=== PATIENT | male | born 1995 | race Hispanic/Latino ===

== ENCOUNTER 2018-02-03 16:35 | Inpatient (IN) | payer MEDICAID ==
[2018-02-03 16:54] VITALS: BMI 23.6
[2018-02-03 17:56] LABS: HEMOGLOBIN 14.1 g/dL (12.0-18.0); MEAN CORPUSCULAR HEMOGLOBIN 29.7 pg (27.0-31.0); MEAN CORPUSCULAR HGB CONC 34.1 g/dL (33.0-37.0); MEAN PLATELET VOLUME 8.3 fL (7.2-11.7); RBC 4.76 Mil/uL (4.40-5.90); RED CELL DISTRIBUTION WIDTH 13.1 % (11.5-14.5)
[2018-02-03 18:05] LABS: URINE AMORPHOUS SEDIMENT RARE /ul (<OCC); URINE BILIRUBIN NEGATIVE (NEGATIVE); URINE BLOOD NEGATIVE (NEGATIVE); URINE CLARITY Hazy (Clear); URINE COLOR Yellow (YELLOW); URINE GLUCOSE (UA) NORMAL (Normal); URINE LEUKOCYTE ESTERASE NEG Leu/uL (Negative); URINE PROTEIN NEGATIVE (NEGATIVE)
[2018-02-03 18:12] LABS: BARBITURATES, UR NEGATIVE (NEGATIVE); OPIATES, UR NEGATIVE (NEGATIVE); PHENCYCLIDINE, UR NEGATIVE (NEGATIVE)
--- NOTE | 2018-02-03 18:14 | C.PDOC ---
History Of Present Illness 22 year old male with PMHx of anxiety and depression presents to the ED requesting detox from alcohol and benzo's. Patient currently reports feeling mildly anxious, states he is due for his gabapentin dose (600 mg). He also complains of feeling nauseous and shaky, with generalized bodyaches. Patient denies any suicidal or homicidal ideation. Denies any other drug use. Time Seen by Provider: 02/03/18 18:14 Chief Complaint (Nursing): Substance Abuse History Per: Patient History/Exam Limitations: no limitations Onset/Duration Of Symptoms: Days Current Symptoms Are (Timing): Still Present Suicide/Self Injury Attempted (Context): None Modifying Factor(s): Alcohol, Other (Benzos) Associated Symptoms: denies: Suicidal Thoughts, Suicidal Plan Involuntary Hold By: None Past Medical History Reviewed: Historical Data, Nursing Documentation, Vital Signs Vital Signs: Last Vital Signs Temp 98.5 F 02/03/18 16:54 Pulse 94 H 02/03/18 16:54 Resp 18 02/03/18 16:54 BP 116/80 02/03/18 16:54 Pulse Ox 97 02/03/18 16:54 - Medical History PMH: Anxiety, Depression Family History: States: No Known Family Hx - Social History Hx Alcohol Use: Yes Hx Substance Use: Yes (benzo) - Immunization History Hx Tetanus Toxoid Vaccination: No Hx Influenza Vaccination: No Hx Pneumococcal Vaccination: No Review Of Systems Except As Marked, All Systems Reviewed And Found Negative. Constitutional: Positive for: Other (bodyaches). Negative for: Fever Cardiovascular: Negative for: Chest Pain, Palpitations Respiratory: Negative for: Shortness of Breath Gastrointestinal: Positive for: Nausea. Negative for: Vomiting, Abdominal Pain Musculoskeletal: Positive for: Other (tremors) Neurological: Negative for: Dizziness Physical Exam - Physical Exam Appears: Non-toxic, No Acute Distress, Other (Appears mildly anxious) Skin: Normal Color, Warm, Dry Head: Atraumatic, Normacephalic Eye(s): bilateral: Normal Inspection, PERRL, EOMI Oral Mucosa: Moist Neck: Normal ROM Chest: Symmetrical Cardiovascular: Rhythm Regular, No Murmur Respiratory: Normal Breath Sounds, No Accessory Muscle Use, Other (NARD) Gastrointestinal/Abdominal: Soft, No Tenderness, No Distention Extremity: Bilateral: Atraumatic, Normal Color And Temperature, Other (mild tremor bilaterally) Pulses: Left Dorsalis Pedis: Normal, Right Dorsalis Pedis: Normal Neurological/Psych: Oriented x3, Normal Speech ED Course And Treatment - Laboratory Results Result Diagrams: 02/03/18 17:51 02/03/18 17:51 O2 Sat by Pulse Oximetry: 97 (RA) Pulse Ox Interpretation: Normal Reevaluation Time: 19:11 Reassessment Condition: Unchanged (MED CLEAR FOR DETOX. CRISIS NOTIFIED.) Medical Decision Making Medical Decision Making: Initial Plan: --Blood work --Urinalysis, UDS --Placed on 1:1 observation --Crisis to arrange detox placement Disposition Counseled Patient/Family Regarding: Studies Performed, Diagnosis - Disposition Disposition: HOSPITALIZED Disposition Time: 20:07 Condition: STABLE Forms: [facility] ([place]) - POA Present On Arrival: None - Clinical Impression Clinical Impression: Drug dependence - Scribe Statement The provider has reviewed the documentation as recorded by the Tyrone Ruffin Provider Attestation: All medical record entries made by the [place] were at my direction and personally dictated by me. I have reviewed the chart and agree that the record accurately reflects my personal performance of the history, physical exam, medical decision making, and the department course for this patient. I have also personally directed, reviewed, and agree with the discharge instructions and disposition.
[2018-02-03 18:22] LABS: BENZODIAZEPINES, UR POSITIVE (NEGATIVE)
[2018-02-03 19:06] LABS: ALB/GLOB RATIO 1.5 (1.0-2.1); ALBUMIN 4.5 g/dL (3.5-5.0); ALT/SGPT 38 U/L (21-72); AST/SGOT 138 U/L (17-59); BLOOD UREA NITROGEN 17 mg/dL (9-20); CALCIUM 9.7 mg/dl (8.6-10.4); GFR NON-AFRICAN AMERICAN > 60
--- NOTE | 2018-02-03 20:20 | PCM.BM ---
<OleMichelle - Last Filed: 02/03/18 20:18> Treatment Plan Problems - Problems identified on initial assessmt Potential for alcohol /benzo withdrawal Date Initiated: 02/03/18 Time Initiated: 20:19 Assessment reference: NA Status: Active Treatment assets and liabiliti Patient Assests: ADL independent, negotiates basic needs, cognitively intact Patient Liabilities: substance abuse (alcohol, benzo) - Milieu Protocol Maintain good personal hygiene: daily Encourage regular showers, daily Remind patient to perform daily oral care, daily Assist patient to perform ADL's Conduct patient checks and document Observation sheet: Q15 minutes Maintain personal safety: every shift Educate patient to report safety concerns to staff, every shift Monitor environment for contraband/sharps Medication safety: Monitor for expected outcome, potential side effects: every shift, Assess barriers to learning: every shift, Assess readiness for medication education: every shift <Bartolo Fernandez - Last Filed: 02/07/18 13:56> - Diagnosis (1) Alcohol use disorder, severe, dependence Status: Acute Interventions: 02/06/18 13:56 * Assess 7x/week regarding severity of withdrawal * Educate regarding risks, benefits, side effects and alternatives of medications * Use Motivational Interviewing for abstinence * Use CBT for relapse prevention * Medication management for withdrawal symptoms * Encourage medication assisted treatment *
[2018-02-04] MEDS ORDERED: Aluminum Hydroxide/Magnesium Hydroxide Susp (30 mL) PO PRN (11:53)
[2018-02-04] MEDS: Multiple Vitamins Tab PO SCH (12:29)
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
--- NOTE | 2018-02-05 09:02 | RAD ---
Chest x-ray two views HISTORY: Rehab admission. COMPARISON: None available. Findings: No focal infiltrate or effusion. Heart size within normal limits. Impression: No focal infiltrate or effusion.
[2018-02-05] MEDS: Multiple Vitamins Tab PO SCH (09:04)
--- NOTE | 2018-02-05 15:03 | PCM.PYCHPN ---
Psychiatric Progress Note - Psychiatric Progress Note Patient seen today, length of contact: 15 minutes Patient Chief Complaint: I'm feeling better with some anxiety. Problems Identified/Issues Discussed: Patient seen, chart reviewed, case discussed with the staff. Issues related to illness and treatment were discussed with the patient and staff. Reported compliant with treatment with no adverse effects. Tolerating treatment very well. Reported feeling little better with some improvement in withdrawal symptoms. Awake, alert and oriented 3. Calm and cooperative with good eye contact. Mood reported as anxious. Affect appropriate. Treatment discussed with the patient. Needs more time for stabilization. Aftercare discussed with the patient. Denied any delusions, auditory or visual hallucinations, suicidal ideations or homicidal ideations at the time of evaluation. Medical Problems: None reported Diagnostic Results: Reviewed DSM 5 Symptoms Update: Some improvement with treatment. Medication Change: No Medical Record Reviewed: Yes Mental Status Examination - Cognitive Function Orientation: Person, Place, Situation, Time Memory: Intact Attention: WNL Concentration: WNL Association: WNL Fund of Knowledge: [facility] Decription of patient's judgement and insights: Fair - Mood Mood: Anxious - Affect Affect: Other (Appropriate) - Speech Speech: Appropriate - Formal Thought Process Formal Thought Process: No Impairment Psychotic Thoughts and Behaviors: None - Suicidal Ideation Suicidal Ideation: No - Homicidal Ideation Homicidal Ideation: No Goal/Treatment Plan - Goal/Treatment Plan Need for Continued Stay: Remain at risks for inpatient hospitalization, Discharge may exacerbated symptoms, Severe functional impairment Progress Toward Problem(s) and Goals/Treatment Plan: Patient education. Supportive therapy. CBT for relapse prevention. AK for abstinence. Continue treatment as before. Patient wants to go either to [facility] [place] [facility] for follow-up care after discharge from the hospital. Estimated Date of D/C: 02/08/18 - Smoking Cessation Smoking Cessation Initiated: Yes
--- NOTE | 2018-02-05 15:08 | PCM.PYCHPN ---
Psychiatric Progress Note - Psychiatric Progress Note Patient seen today, length of contact: 15 minutes Patient Chief Complaint: I'm feeling better with still some anxiety. Problems Identified/Issues Discussed: Patient seen, chart reviewed, case discussed with the staff. Issues related to illness and treatment were discussed with the patient and staff. Reported compliant with treatment with no adverse effects. Tolerating treatment very well. Reported feeling little better with some improvement in withdrawal symptoms, still feels some anxiety. Awake, alert and oriented 3. Calm and cooperative with good eye contact. Mood reported as anxious. Affect appropriate. Treatment discussed with the patient. Needs more time for stabilization. Aftercare discussed with the patient. Denied any delusions, auditory or visual hallucinations, suicidal ideations or homicidal ideations at the time of evaluation. Medical Problems: None reported Diagnostic Results: Reviewed DSM 5 Symptoms Update: Some improvement with treatment. Medication Change: No Medical Record Reviewed: Yes Mental Status Examination - Cognitive Function Orientation: Person, Place, Situation, Time Memory: Intact Attention: WNL Concentration: WNL Association: [facility] Fund of Knowledge: [facility] Decription of patient's judgement and insights: Fair - Mood Mood: Anxious - Affect Affect: Other (Appropriate) - Speech Speech: Appropriate - Formal Thought Process Formal Thought Process: No Impairment Psychotic Thoughts and Behaviors: None - Suicidal Ideation Suicidal Ideation: No - Homicidal Ideation Homicidal Ideation: No Goal/Treatment Plan - Goal/Treatment Plan Need for Continued Stay: Remain at risks for inpatient hospitalization, Discharge may exacerbated symptoms, Severe functional impairment Progress Toward Problem(s) and Goals/Treatment Plan: Patient education. Supportive therapy. CBT for relapse prevention. NM for abstinence. Continue treatment as before. Patient wants to go [facility] to [facility] [place] [facility] for follow-up care after discharge from the hospital. Estimated Date of D/C: 02/08/18 - Smoking Cessation Smoking Cessation Initiated: Yes
[2018-02-05] MEDS: Vitamins A & D Oint UD Foilpak TOP PRN (21:04)
[2018-02-06 06:08] VITALS: RESP 18
[2018-02-06] MEDS: Multiple Vitamins Tab PO SCH (09:06)
--- NOTE | 2018-02-06 15:18 | PCM.PYCHPN ---
Psychiatric Progress Note - Psychiatric Progress Note Patient seen today, length of contact: 15 minutes Patient Chief Complaint: "Tired" Problems Identified/Issues Discussed: The pt is seen, chart reviewed, case discussed with staff. The pt is compliant with medications and reports no side-effects. Symptoms are improving but needs more time to stabilize. Pt attends groups and activities. Support given, psycho-education provided. After care discussed. Medication Change: Yes (detox changes daily) Medical Record Reviewed: Yes Mental Status Examination - Cognitive Function Orientation: Person, Place, Situation, Time Memory: Intact Attention: WNL Concentration: WNL Association: WNL Fund of Knowledge: WNL - Mood Mood: Anxious - Affect Affect: Other (Appropriate) - Speech Speech: Appropriate - Formal Thought Process Formal Thought Process: No Impairment - Suicidal Ideation Suicidal Ideation: No - Homicidal Ideation Homicidal Ideation: No Goal/Treatment Plan - Goal/Treatment Plan Need for Continued Stay: Discharge may exacerbated symptoms, Severe functional impairment Progress Toward Problem(s) and Goals/Treatment Plan: Continue medications Support and psychoeducation daily Attend groups and activities daily After care planning by counselors Estimated Date of D/C: 02/08/18
[2018-02-07] MEDS: Multiple Vitamins Tab PO SCH (09:46)
[2018-02-07] MEDS: Vitamins A & D Oint UD Foilpak TOP PRN (12:42)
[2018-02-08 07:09] LABS: ALB/GLOB RATIO 1.7 (1.0-2.1); ALBUMIN 4.5 g/dL (3.5-5.0); ALT/SGPT 29 U/L (21-72); AST/SGOT 27 U/L (17-59); BLOOD UREA NITROGEN 21 mg/dL (9-20); CALCIUM 9.4 mg/dl (8.6-10.4); GFR NON-AFRICAN AMERICAN > 60
--- NOTE | 2018-02-08 08:57 | PCM.PYCHDC ---
Mental Status Examination - Mental Status Examination Orientation: Person Discharge Summary - Discharge Note Laboratory Data: Abnormal Lab Results 02/08/18 06:41 Sodium 138 Potassium 4.6 Chloride 100 Carbon Dioxide 27 Anion Gap 15 BUN 21 H Creatinine 1.1 Est GFR ( Amer) > 60 Est GFR (Non-Af Amer) > 60 Random Glucose 88 Calcium 9.4 Total Bilirubin 0.3 AST 27 ALT 29 Alkaline Phosphatase 43 Total Protein 7.1 Albumin 4.5 Globulin 2.7 Albumin/Globulin Ratio 1.7 Consultations:: List each consultation separately and include: 1. Reason for request. 2. Findings. 3. Follow-up Summary of Hospital Course include:: 1. Description of specific treatment plan utilized for patients during their course of treatmen. 2. Summarize the time- course for resolution of acute symptoms and/or regressed behaviors. 3. Describe issues identified and worked on during hospitalization. 4. Describe medication utilized. 5. Describe medical problems identified and treated. 6. Reassessment of suicide risk Summary of Hospital Course: He will go to [facility] in - Diagnosis (1) Alcohol use disorder, severe, dependence Current Visit: Yes Status: Acute - Final Diagnosis (DSM 5) Condition upon Discharge: STABLE Disposition: HOME/ ROUTINE Follow-up Treatment Plan: Continue medications Support and psychoeducation daily Attend groups and activities daily After care planning by counselors Prescriptions/Medication Reconciliation: Citalopram [celEXA] 40 mg PO DAILY #30 tab Gabapentin [Neurontin] 400 mg PO TID #90 cap Naltrexone [Revia] 50 mg PO DAILY #30 tab QUEtiapine [Seroquel] 100 mg PO HS #30 tab traZODone [Desyrel] 100 mg PO HS PRN #30 tab PRN Reason: insomnia
[2018-02-08] MEDS: Multiple Vitamins Tab PO SCH (09:29)
[2018-02-08 10:32] VITALS: BP 130/80; PULSE 95; TEMP 97.6; O2SAT 95
== END 2018-02-08 10:25 | disposition home or self-care (01) | DRG 745 ==
LOC: C.ER 16:35 → C.7D 20:07
PROC: HZ2ZZZZ Detoxification Services for Substance Abuse Treatment (ICD-10-PCS; principal; 2018-02-03)
PROC: GZ3ZZZZ Medication Management (ICD-10-PCS; 2018-02-03)
PROC: HZ80ZZZ Medication Management for Substance Abuse Treatment, Nicotine Replacement (ICD-10-PCS; 2018-02-03)
PROC: HZ59ZZZ Individual Psychotherapy for Substance Abuse Treatment, Supportive (ICD-10-PCS; 2018-02-03)
PROC: HZ46ZZZ Group Counseling for Substance Abuse Treatment, Psychoeducation (ICD-10-PCS; 2018-02-03)
DX: F10.20 Alcohol dependence, uncomplicated (principal); F11.20 Opioid dependence, uncomplicated; F13.239 Sedative, hypnotic or anxiolytic dependence with withdrawal, unspecified; F41.8 Other specified anxiety disorders; F17.210 Nicotine dependence, cigarettes, uncomplicated; Z91.410 Personal history of adult physical and sexual abuse

== ENCOUNTER 2018-02-28 14:11 | Inpatient (IN) | payer MEDICAID ==
[2018-02-28 14:11] VITALS: BMI 23.6
--- NOTE | 2018-02-28 15:26 | C.PDOC ---
History Of Present Illness 23 year old male with PMHx of depression, anxiety and drug abuse presents to the ED requesting detoxification from Xanax and Kratom. Reports he was at rehabilitation at [facility] but he was tested positive for alcohol and was expelled as a result. Reports he takes Gabapentin for depression. Denies SI/HI. Time Seen by Provider: 02/28/18 14:45 Chief Complaint (Nursing): Psychiatric Evaluation History Per: Patient History/Exam Limitations: no limitations Onset/Duration Of Symptoms: Hrs Current Symptoms Are (Timing): Still Present Suicide/Self Injury Attempted (Context): None Modifying Factor(s): Alcohol, Other (Xanax, Krotum ) Associated Symptoms: Anxiety, Depression. denies: Suicidal Thoughts, Suicidal Plan Past Medical History Reviewed: Historical Data, Nursing Documentation, Vital Signs - Medical History PMH: Anxiety, Depression Denies: Diabetes (Patient denied), Hepatitis (Patient denied), HIV (Patient denied), HTN (Patient denied), Seizures (Patient denied), Sexually Transmitted Disease (Patient denied) Other Surgeries: Hx of surgeries - [facility] DETOXIFICATION SERVICES FOR SUBSTANCE ABUSE TREATMENT (02/03/18) GROUP POSTAL DELIVERY OFFICER FOR SUBSTANCE ABUSE TREATMENT, PSYCHOEDUCATION (02/03/18) INDIV PSYCHOTHERAPY FOR SUBSTANCE ABUSE TREATMENT, SUPPORT (02/03/18) MEDICATION MANAGEMENT (02/03/18) MEDS MGMT FOR SUBSTANCE ABUSE TREATMENT, NICOTINE REPLACE (02/03/18) Family History: States: No Known Family Hx - Social History Hx Alcohol Use: Yes Hx Substance Use: Yes - Immunization History Hx Tetanus Toxoid Vaccination: No Hx Influenza Vaccination: No Hx Pneumococcal Vaccination: No Review Of Systems Except As Marked, All Systems Reviewed And Found Negative. Psych: Positive for: Anxiety, Depression. Negative for: Suicidal ideation Physical Exam - Physical Exam Additional Physical Exam Comments: General- Well appearing, Non-toxic, No acute distress Head- Normocephalic, Atraumatic Eyes- PERRL, EOMI, Conjunctiva clear Mucosa- Moist Chest- Symmetrical Cardiovascular: Rhythm Regular, No murmur, Other (Normal S1, S2) Resp- no wheezing, rales, or rhonchi, Lungs CTA bilaterally Abd- Soft. Nontender. No distension. No guarding, no rebound Ext: Bilateral (atraumatic, normal color and temperature, no cyanosis or edema) DP pulses 2+ Neuro- Oriented x3, normal sensation, normal motor Gait: steady ED Course And Treatment - Laboratory Results Result Diagrams: 02/28/18 15:36 02/28/18 15:36 Medical Decision Making Medical Decision Making: Plan - Bloodwork - UA - Crisis Eval 174 As per supervisor shed workers, patient will be admitted under Dr. Moran's service for major depressive disorder. Disposition Counseled Patient/Family Regarding: Studies Performed, Diagnosis - Disposition Disposition: HOSPITALIZED Disposition Time: 17:42 Condition: STABLE - Clinical Impression Clinical Impression: Major depressive disorder - Scribe Statement The provider has reviewed the documentation as recorded by the Scribe Honey Calle All medical record entries made by the Scribe were at my direction and personally dictated by me. I have reviewed the chart and agree that the record accurately reflects my personal performance of the history, physical exam, medical decision making, and the department course for this patient. I have also personally directed, reviewed, and agree with the discharge instructions and disposition.
[2018-02-28 15:47] LABS: BASO % 0.8 % (0.0-2.0); EOS % 0.6 % (0.0-4.0); HEMOGLOBIN 13.4 g/dL (12.0-18.0); LYMPH % 35.8 % (20.0-40.0); MEAN CELL VOLUME 89.1 fL (80.0-94.0); MEAN CORPUSCULAR HEMOGLOBIN 30.3 pg (27.0-31.0); MEAN PLATELET VOLUME 9.5 fL (7.2-11.7); MONO # 0.8 K/uL (0.0-0.8); MONO % 14.7 % (0.0-10.0); NEUT # 2.7 K/uL (1.8-7.0); NEUT % 48.1 % (50.0-75.0); RBC 4.42 Mil/uL (4.40-5.90); RED CELL DISTRIBUTION WIDTH 12.9 % (11.5-14.5); URINE BILIRUBIN NEGATIVE (NEGATIVE); URINE BLOOD NEGATIVE (NEGATIVE); URINE CLARITY Hazy (Clear); URINE COLOR Yellow (YELLOW); URINE GLUCOSE (UA) NORMAL (Normal); URINE LEUKOCYTE ESTERASE NEG Leu/uL (Negative); URINE PROTEIN NEGATIVE (NEGATIVE); URINE UROBILINOGEN NORMAL mg/dL (0.2-1.0); WHITE BLOOD COUNT 5.6 K/uL (4.8-10.8)
[2018-02-28 15:59] LABS: BARBITURATES, UR NEGATIVE (NEGATIVE); BENZODIAZEPINES, UR NEGATIVE (NEGATIVE); OPIATES, UR NEGATIVE (NEGATIVE); PHENCYCLIDINE, UR NEGATIVE (NEGATIVE)
[2018-02-28 16:08] LABS: ALB/GLOB RATIO 1.8 (1.0-2.1); ALBUMIN 4.4 g/dL (3.5-5.0); ALT/SGPT 24 U/L (21-72); AST/SGOT 22 U/L (17-59); BLOOD UREA NITROGEN 20 mg/dL (9-20); CALCIUM 8.8 mg/dl (8.6-10.4); GFR NON-AFRICAN AMERICAN > 60
--- NOTE | 2018-02-28 18:30 | PCM.BM ---
<Jairo Valdez - Last Filed: 02/28/18 18:26> Treatment Plan Problems - Problems identified on initial assessmt Depression Date Initiated: 02/28/18 Time Initiated: 18: Assessment reference: NA Status: Active Substance Abuse Date Initiated: 02/28/18 Time Initiated: 18:27 Assessment reference: NA Status: Active Treatment assets and liabiliti Patient Assests: self-reliant, ADL independent, negotiates basic needs, cognitively intact Patient Liabilities: financial problems (Unemployed), substance abuse (Alcohol, opiate tea, xanax), legal issue (Currently on probation) - Milieu Protocol Maintain good personal hygiene: daily Encourage regular showers, daily Remind patient to perform daily oral care, every shift Assist patient to perform ADL's Conduct patient checks and document Observation sheet: Q15 minutes (For safety) Maintain personal safety: every shift Educate patient to report safety concerns to staff, every shift Monitor environment for contraband/sharps Medication safety: Monitor for expected outcome, potential side effects: every shift, Assess barriers to learning: every shift, Assess readiness for medication education: every shift <Musa Moran - Last Filed: 03/01/18 11:23> - Diagnosis (1) Bipolar disorder Status: Acute Interventions: 03/01/18 11:23 * Assess/adjust medications daily and /or as needed * See patient on an individual basis 7x/week to assess level of manic behaviors and stability * Discuss risks, benefits, side effects and alternatives of medications * (2) Alcohol use disorder, severe, dependence Status: Acute Interventions: 03/01/18 11:24 * Assess 7x/week regarding severity of withdrawal * Educate regarding risks, benefits, side effects and alternatives of medications * Use Motivational Interviewing for abstinence * Use CBT for relapse prevention * Medication management for withdrawal symptoms * Encourage medication assisted treatment * <Lisa Naranjo - Last Filed: 03/01/18 11:42> Family Contact Family involvement: Famliy/SO not involved - Goals for Treatment Patient goals for treatment: "I want to go back to the [facility]." Discharge/Continuing Care - Education Needs Education Needs: Patient Medication, Patient Coping Skills, Patient Placement options, Patient Community resources - Discharge Discharge Criteria: Tolerates medication w/o severe side effects, No longer exhibiting s/s of withdrawal Discharge to:: Substance Abuse Rehab - Treatment Team Participation Discussed with Family/SO: No Was Patient/Family/SO present at Treatment Team Meeting: Yes
[2018-03-01] MEDS ORDERED: Naltrexone 25 MG TAB PO SCH (10:00)
--- NOTE | 2018-03-01 10:02 | PCM.PSYCH ---
Initial Psychiatric Evaluation - Initial Psychiatric Evaluation Type of Admission: Voluntary Legal Status: Capacity Chief Complaint (in patient's own words): I was feeling suicidal.' History of Present Illness and Precipitating Events: Patient is a 23 year old, male, single unemployed, who came to the hospital to get help in detox, however during his screening, patient mentioned depressed mood and suicidal ideation. As per the father, patient has history of few inpatient psychiatric hospitalizations, he was last discharged from [facility], in August 2017. He has a history of few detoxes in the past, past detox was at [facility], last month. He follows up with Dr. Ibrahim at [facility] He has been partially compliant with his medications since then. Patient reports history of few suicidal attempts in the past, which all included him trying to either stab himself or cut himself. Patient reported his last suicide attempt was 3 years ago in which patient tried stabbing himself. Patient stated that the suicidal thoughts started yesterday, he informed his family, and his father escorted him to the hospital to get help. Patient reports that he is struggling with his alcohol use. He reports that he has been drinking more than a pint of liquor daily. He reports that he was discharged from the detox unit 02/08/2018 and that he was sober for 25 days. Patient reported that he was attending the [facility] but when he relapsed on 02/28/2018 they tested him and he tested positive in which than he was thrown out of the [facility]. He also reports of abusing Kratum and Xanax. He reports irritability, agitation and racing thoughts. He reports depressed mood, feelings of hopelessness and helplessness, poor sleep and poor appetite. He reports suicidal ideation however he denies any homicidal ideation. He denies any auditory or visual hallucinations or any paranoia. He reports withdrawal symptoms including anxiety, sweating and headaches. Past medical history None reported Current Medications: Active Medications Generic Name Dose Route Start Last Admin Trade Name Freq PRN Reason Stop Dose Admin Citalopram Hydrobromide 20 mg 03/01/18 10:00 Celexa PO DAILY STEPHANIE Gabapentin 400 mg 03/01/18 10:00 Neurontin PO TID STEPHANIE Influenza Virus Vaccine 60 mcg 03/02/18 10:00 Fluzone Quad [id number] IM 03/02/18 10:01 .ONCE ONE Naltrexone HCl 50 mg 03/01/18 10:00 Revia PO DAILY STEPHANIE Pneumococcal Polyvalent Vaccine 0.5 ml 03/02/18 10:00 Pneumovax 23 Vaccine IM 03/02/18 10:01 .ONCE ONE Quetiapine Fumarate 100 mg 02/28/18 23:45 Seroquel PO HS STEPHANIE Trazodone HCl 100 mg 02/28/18 23:52 Desyrel PO HS PRN insomnia Past Psychiatric History - Past Psychiatric History Previous Treatment History: Inpatient Pertinent Medical Hx (Current Medical&Sleep Prob, Allergies): Allergies Allergy/AdvReac Type Severity Reaction Status Date / Time No Known Allergies Allergy Verified 02/03/18 17:20 Citalopram Hydrobromide [Celexa] 30 mg PO DAILY 02/03/18 Gabapentin 600 mg PO QID 02/03/18 QUEtiapine [SEROquel] 50 mg PO HS 02/03/18 Citalopram [celEXA] 40 mg PO DAILY #30 tab 02/08/18 Gabapentin [Neurontin] 400 mg PO TID #90 cap 02/08/18 Naltrexone [Revia] 50 mg PO DAILY #30 tab 02/08/18 QUEtiapine [Seroquel] 100 mg PO HS #30 tab 02/08/18 traZODone [Desyrel] 100 mg PO HS PRN #30 tab 02/08/18 Review of Systems - Review of Systems All systems: reviewed and no additional remarkable complaints except - Psychiatric Psychiatric: Anxiety, Irritability, Mood Swings, Suicidal Ideation Mental Status Examination - Personal Presentation Personal Presentation: Looks stated age - Affect Affect: Broad - Motor Activity Motor Activity: Psychomotor Agitation - Reliability in Providing Information Reliability in Providing Information: Poor, due to altered mood - Speech Speech: Organized - Mood Mood: Anxious - Formal Thought Process Formal Thought Process: Flight of ideas - Obsessions/Compulsions Obsessions: No Compulsions: No - Cognitive Functions Orientation: Person, Place, Situation, Time Sensorium: Alert Attention/Concentration: Attentive Abstract Thinking: [place] Estimate of Intelligence: Below average Judgement: Imparied, as evidence by: Poor judgement, Imparied, as evidence by: Lack of insight into illness - Risk Risk: Suicidal, Withdrawal, Diminished functioning - Limitations Limitations: Living alone DSM 5 DX - DSM 5 DSM 5 Diagnosis: Bipolar disorder depressed severe without psychotic features Alcohol use disorder severe Alcohol withdrawal 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 nightly Trazodone 100 mg p.o. nightly [place] 300 mg p.o. 3 times daily Lexapro 10 mg p.o. daily Hydroxyzine 25 mg p.o. every 6 hours as needed Neurontin 400 mg p.o. 3 times daily Ativan prn As needed medications - Smoking Cessation Smoking Cessation Initiated: No
[2018-03-02] MEDS ORDERED: Pneumococcal 23-Valent Vaccine IM ONE (10:00)
[2018-03-02] MEDS ORDERED: Influenza Vaccine 60 MCG/0.5 ML SYR (3 yr & up) IM ONE (10:00)
--- NOTE | 2018-03-02 13:12 | PCM.PYCHPN ---
Psychiatric Progress Note - Psychiatric Progress Note Patient seen today, length of contact: 15 min Patient Chief Complaint: I m feeling irritable.' Problems Identified/Issues Discussed: Patient was seen and evaluated, chart reviewed and discussed with the staff. Patient still reports irritability, agitation and racing thoughts. He still reports depressed mood and at times feelings of hopelessness and helplessness. He denies any auditory or visual hallucinations or any paranoia. He is taking medication but denies any side effects Supportive therapy was given Medication Change: Yes Medical Record Reviewed: Yes Mental Status Examination - Cognitive Function Orientation: Person, Place, Situation, Time Memory: Intact Attention: WNL Concentration: Poor Association: WNL Fund of Knowledge: Poor - Mood Mood: Anxious - Affect Affect: Broad - Speech Speech: Soft - Formal Thought Process Formal Thought Process: Flight of ideas - Suicidal Ideation Suicidal Ideation: No - Homicidal Ideation Homicidal Ideation: No Goal/Treatment Plan - Goal/Treatment Plan Need for Continued Stay: Severe depression anxiety, Severe functional impairment Progress Toward Problem(s) and Goals/Treatment Plan: Bipolar disorder depressed severe without psychotic features Alcohol use disorder severe Alcohol withdrawal Sedated/hypnotic use disorder severe CBT Psychoeducation Supportive therapy Seroquel 100 mg p.o. nightly Trazodone 100 mg p.o. nightly [place] 300 mg p.o. 3 times daily Lexapro 10 mg p.o. daily Hydroxyzine 25 mg p.o. every 6 hours as needed Neurontin 400 mg p.o. 3 times daily Ativan prn As needed medications - Smoking Cessation Smoking Cessation Initiated: No
[2018-03-03 06:37] VITALS: RESP 20
[2018-03-04 06:32] VITALS: O2SAT 97
[2018-03-07 06:08] VITALS: TEMP 97.6
[2018-03-07 09:06] VITALS: BP 128/72; PULSE 60
--- NOTE | 2018-03-07 20:47 | PCM.PYCHDC ---
Mental Status Examination - Mental Status Examination Orientation: Person, Place, Situation, Time Memory: Intact Mood: Neutral Affect: Other (Appropriate) Speech: Appropriate Attention: WNL Concentration: WNL Association: WNL Fund of Knowledge: WNL Formal Thought Process: No Impairment Description of patient's judgement and insight: Fair Psychotic Thoughts and Behaviors: None Suicidal Ideation: No Current Homicidal Ideation?: No Discharge Summary - Discharge Note Reason for Hospitalization: Bipolar I disorder most recent episode depressed severe without psychotic features. Alcohol use disorder severe. Anxiolytic use disorder severe Laboratory Data: Reviewed Consultations:: List each consultation separately and include: 1. Reason for request. 2. Findings. 3. Follow-up Summary of Hospital Course include:: 1. Description of specific treatment plan utilized for patients during their course of treatmen. 2. Summarize the time- course for resolution of acute symptoms and/or regressed behaviors. 3. Describe issues identified and worked on during hospitalization. 4. Describe medication utilized. 5. Describe medical problems identified and treated. 6. Reassessment of suicide risk Summary of Hospital Course: Patient is a 23 year old, male, single unemployed, who came to the hospital to get help in detox, however during his screening, patient mentioned depressed mood and suicidal ideation. As per the father, patient has history of few inpatient psychiatric hospitalizations, he was last discharged from [facility], in August 2017. He has a history of few detoxes in the past, past detox was at [facility], last month. He follows up with Dr. Ibrahim at [facility]. He has been partially compliant with his medications since then. Patient reports history of few suicidal attempts in the past, which all included him trying to either stab himself or cut himself. Patient reported his last suicide attempt was 3 years ago in which patient tried stabbing himself. Patient stated that the suicidal thoughts started yesterday, he informed his family, and his father escorted him to the hospital to get help. Patient reports that he is struggling with his alcohol use. He reports that he has been drinking more than a pint of liquor daily. He reports that he was discharged from the detox unit 02/08/2018 and that he was sober for 25 days. Patient reported that he was attending the [facility] but when he relapsed on 02/28/2018 they tested him and he tested positive in which than he was thrown out of the [facility]. He also reports of abusing Kratum and Xanax. He reports irritability, agitation and racing thoughts. He reports depressed mood, feelings of hopelessness and helplessness, poor sleep and poor appetite. He reports suicidal ideation however he denies any homicidal ideation. He denies any auditory or visual hallucinations or any paranoia. He reports withdrawal symptoms including anxiety, sweating and headaches. Past medical history None reported During his stay in the hospital patient was treated with Ativan taper for alcohol withdrawal symptoms. He was also treated with lithium, Seroquel and escitalopram. He was also started on other PRN medications. During his stay patient was also attending groups and other activities on the unit. With above treatment patient started feeling better. Today patient was stable and ready fo r discharge from the hospital. At the time of evaluation and discharge, patient was awake alert oriented x3, had no delusions, no auditory or visual hallucinations, no suicidal ideations or homicidal ideations. Patient was stable at the time of discharge. Patient will go to [facility] for follow-up care after discharge from the hospital. - Final Diagnosis (DSM 5) Condition upon Discharge: STABLE Disposition: HOME/ ROUTINE Follow-up Treatment Plan: Patient will go to [facility] for follow-up care after discharge from the hospital. Prescriptions/Medication Reconciliation: Escitalopram [Lexapro] 20 mg PO DAILY 30 Days #30 tab - Smoking Cessation Smoking Cessation Medication prescribed: No - Antipsychotic Medications Pt discharged on 2 or more routine antipsychotic medications: No
== END 2018-03-07 10:30 | disposition home or self-care (01) | DRG 430 ==
LOC: C.ER 14:11 → C.5E 18:00
PROVIDERS: ADMIT Psychiatry & Neurology Psychiatry; ATTEND Psychiatry & Neurology Psychiatry
PROC: GZHZZZZ Group Psychotherapy (ICD-10-PCS; principal; 2018-02-28)
PROC: HZ2ZZZZ Detoxification Services for Substance Abuse Treatment (ICD-10-PCS; 2018-02-28)
PROC: HZ52ZZZ Individual Psychotherapy for Substance Abuse Treatment, Cognitive-Behavioral (ICD-10-PCS; 2018-02-28)
PROC: HZ59ZZZ Individual Psychotherapy for Substance Abuse Treatment, Supportive (ICD-10-PCS; 2018-02-28)
PROC: HZ56ZZZ Individual Psychotherapy for Substance Abuse Treatment, Psychoeducation (ICD-10-PCS; 2018-02-28)
PROC: HZ42ZZZ Group Counseling for Substance Abuse Treatment, Cognitive-Behavioral (ICD-10-PCS; 2018-02-28)
PROC: HZ46ZZZ Group Counseling for Substance Abuse Treatment, Psychoeducation (ICD-10-PCS; 2018-02-28)
PROC: GZ58ZZZ Individual Psychotherapy, Cognitive-Behavioral (ICD-10-PCS; 2018-02-28)
PROC: GZ56ZZZ Individual Psychotherapy, Supportive (ICD-10-PCS; 2018-02-28)
DX: F31.4 Bipolar disorder, current episode depressed, severe, without psychotic features (principal); F10.230 Alcohol dependence with withdrawal, uncomplicated; F13.20 Sedative, hypnotic or anxiolytic dependence, uncomplicated; Y90.0 Blood alcohol level of less than 20 mg/100 ml; R45.851 Suicidal ideations; F41.9 Anxiety disorder, unspecified; Z91.5 Personal history of self-harm